=== PATIENT | male | born 1970 | race Two or more races ===

== ENCOUNTER 2018-06-03 01:39 | Emergency (ER) | payer SELFPAY ==
[~2018-06-03] VITALS: Ht 175.3 cm; Wt 78.0 kg
[2018-06-03] MEDS ORDERED: HYDROCODONE/APAP 10MG-325MG TAB PO ONE (02:00)
--- NOTE | 2018-06-03 03:16 | Diagnostic Imaging Report ---
WRIST LEFT 2 VIEWS, FOREARM LEFT 2 VIEW, ANKLE 3 + VIEWS RIGHT, FOOT RIGHT COMPLETE Comparison: None Clinical history: ^s/p injury 3 days ago ^Y Findings: Left wrist and forearm: Comminuted intraarticular distal radial fracture with apex dorsal inhalation and displacement. Positive ulnar variance with indeterminate adjacent mineralization projecting posterior on lateral view. Ossific fragment posterior to the carpals, likely a triquetral fracture. Associated soft tissue swelling. Left ankle and foot: Oblique nondisplaced distal fibular fracture; ankle mortise is intact. Probable fracture of the medial anterior talus. Comminuted fractures of the navicular, cuboid, middle and lateral cuneiforms with complete disruption of the tarsal and primarily the third through fifth TMT alignment. Intra-articular displaced fracture of the 3rd metatarsal base and likely fifth metatarsal base. Associated soft tissues Impression: Left wrist, forearm: 1. Comminuted displaced intra-articular distal radial fracture. 2. Triquetral fracture. 3. Favor artifact of the fifth proximal phalanx rather than fracture; correlate with point tenderness and dedicated hand views as indicated. Left ankle, foot: 1. Oblique nondisplaced distal fibular fracture. 2. Extensive fractures of the mid foot with dislocation and abnormal TMT alignment. Signed by: Dr Rhiannon Carbajal MD on 06/03/2018 3:13 AM
[2018-06-03] MEDS ORDERED: HYDROMORPHONE 1MG/1ML INJ IM STA (03:24)
--- NOTE | 2018-06-03 03:28 | Diagnostic Imaging Report ---
LUMBAR 3 VIEW, THORACIC SPINE 2VW Comparison: None Clinical history: Injury 3 days ago, pain Findings: Thoracic and lumbar spine: Suboptimal visualization of the cervicothoracic junction on lateral view. Acute appearing compression fracture deformities at T11 and T12 with 70% and 40% height loss, respectively. Slight kyphosis at T11. Mild height loss at T7 and T8, nonspecific. Impression: Acute compression fractures at T11 and T12, resulting in slight focal kyphosis. Discussed with Dr. Segura at 320 AM on 06/03/18. Signed by: Dr Rhiannon Carbajal MD on 06/03/2018 3:24 AM
[2018-06-03] MEDS ORDERED: ONDANSETRON HCL 4 MG ORAL DISINTEGRATING TAB PO ONE (03:30)
[2018-06-03] MEDS ORDERED: HYDROMORPHONE 2MG/ML 2 MG/ML ML ONE ×2 (03:42→06:30)
--- NOTE | 2018-06-03 04:54 | Diagnostic Imaging Report ---
EXAMINATION: Head and cervical spine CT without contrast. HISTORY: Status post fall from 4 mm with thoracic compression fractures, head trauma, neck and back pain, COMPARISON: None. TECHNIQUE: Multidetector axial images were obtained without contrast from the foramen magnum to the vertex and through the cervical spine. The images were reconstructed using brain and bone algorithms. Thin section brain images were reformatted into coronal and sagittal planes. Dose modulation, iterative reconstruction, and/or weight based adjustment of the mA/kV was utilized to reduce the radiation dose to as low as reasonably achievable. HEAD CT FINDINGS: Skull: No lytic or blastic lesions. No fractures. Parenchyma: Normal. No mass, hemorrhage or CT evidence of acute vascular insult. Brain volume: Normal for age. Ventricles: No hydrocephalus or displacement. Arteries: No density suggestive of thrombus. Dural sinuses: No abnormal density. Extra-axial spaces: No abnormal density. Silhouetting of the right choroidal fissure small benign arachnoid cyst. Foramen magnum: No mass, Chiari malformation, or basilar invagination. Sella: No obvious mass. Paranasal/mastoid sinuses: Imaged portions unremarkable. CERVICAL SPINE CT FINDINGS: Alignment:Normal alignment and lordosis. Soft tissues: Normal. Vertebrae: Normal height and density. No acute fracture, infection or neoplasm. Degenerative changes: None IMPRESSION: Head CT: No intracranial abnormalities, particularly no posttraumatic hemorrhage. Cervical spine CT: No acute fractures or dislocations. Note: Acute post traumatic spinal cord, vascular or ligamentous injury cannot adequately be assessed with CT. Signed by: Dr. Denisse Burroughs M.D. on 06/03/2018 4:51 AM
--- NOTE | 2018-06-03 05:23 | Diagnostic Imaging Report ---
EXAMINATION: CT of the thoracic and lumbar spine HISTORY: Status post fall from 4 mm with thoracic compression fractures, seen on thoracic spine plain films, back pain COMPARISON: Thoracic and lumbar spine x-rays performed on 06/03/2018. TECHNIQUE: Multidetector helical axial images were obtained without contrast from T1 to S1. The images were reconstructed using bone and soft tissue algorithms and were viewed in axial, sagittal, and coronal planes. Dose modulation, iterative reconstruction, and/or weight based adjustment of the mA/kV was utilized to reduce the radiation dose to as low as reasonably achievable. FINDINGS: Alignment: Normal thoracic aorta. The lumbar lordosis. Mild thoracolumbar kyphosis. Vertebral bodies: -Acute comminuted and displaced axial compression fracture of the T11 and T12 vertebral bodies, with decreased vertebral body height by approximately 70% anteriorly at T11 and 40% at T12. There is minimal posterior retropulsion of the superior endplate of T12 by approximately 4 mm and associated mild canal stenosis, there is involvement of the T12 vertebral body posterior cortex, consistent with burst fracture. Minimal associated vacuum phenomenon within the T10-T11 and T11-T12 intervertebral disc. Mild widening of the T11 and T12 interspinous process distance without definite posterior ligamentous injury within the limitations of the technique. -Well-corticated bone fragments are seen about the tip of the spinous process of T4 and T12 which may represent sequela from remote trauma, otherwise no evidence of acute fractures of the posterior elements. -Minimal age indeterminate, likely chronic central compression deformity of T7 and T4 (decreased vertebral body height centrally by approximately 20 an 10% respectively) without posterior for retropulsion or canal stenosis. There is also minimal depression of the inferior endplate of T9. Paraspinal muscles: Radiopaque calcified stones without hydronephrosis and the right kidney. Degenerative changes: L1-L2: Normal. L2-L3: Normal. L3-L4: Minimal disc bulge without canal or foraminal stenosis. L4-L5: Symmetric the. Mild bilateral foraminal narrowing.. L5-S1: Minimal. The. Pelvic bones: -Fusion of the left sacroiliac joint. -Nonaggressive-appearing expansile lucent lesion within the left iliac bone, without cortical disruption, periosteal reaction or soft tissue mass, which may represent an atypical hemangioma. IMPRESSION: 1. Acute comminuted and displaced axial compression fracture of the T11 and burst fracture of T12 vertebral bodies with mild posterior retropulsion of T12 and mild canal stenoses. Mild associated thoracolumbar kyphotic malalignment. No definite evidence of posterior ligamentous injury. Unchanged fractures compared to thoracic spine x-ray performed earlier on the same day. 2. Age indeterminate, likely chronic minimal compression deformity of the T4, T7 and T9 vertebral bodies without posterior retropulsion or canal stenosis. 3. Nonaggressive appearing expansile lucent lesion in the left iliac bone as detailed above. Comparison to prior studies if available is advised. 4. Incidentally noted small radiopaque stones in the right kidney without hydronephrosis. Note is made that acute posttraumatic spinal cord, vascular or ligamentous injury cannot adequately be assessed with CT, if there is is clinical concern, a thoracolumbar spine MRIs recommended for further evaluation. The acute compression fractures were already discussed with the ER physician Dr. Segura on 06/03/2018 at 3:24 AM. Signed by: Dr. Denisse Burroughs M.D. on 06/03/2018 5:19 AM
[2018-06-03] MEDS ORDERED: HYDROMORPHONE 1MG/1ML INJ IV STA (06:25)
[2018-06-03] MEDS ORDERED: HYDROMORPHONE 2MG/ML 2 MG/ML ML IV ONE (06:30)
[2018-06-03] MEDS ORDERED: ONDANSETRON HCL INJ 2 MG/ML VIAL ONE (06:30)
[2018-06-03] MEDS ORDERED: ONDANSETRON HCL INJ 2 MG/ML VIAL IV STA (06:39)
== END 2018-06-03 06:55 | disposition other institution (70) ==
LOC: ER 01:39
DX: M54.6 Pain in thoracic spine (principal); S22.080A Wedge compression fracture of T11-T12 vertebra, initial encounter for closed fracture; S22.082A Unstable burst fracture of T11-T12 vertebra, initial encounter for closed fracture; S82.61XA Displaced fracture of lateral malleolus of right fibula, initial encounter for closed fracture; S92.321A Displaced fracture of second metatarsal bone, right foot, initial encounter for closed fracture; S92.331A Displaced fracture of third metatarsal bone, right foot, initial encounter for closed fracture; S92.341A Displaced fracture of fourth metatarsal bone, right foot, initial encounter for closed fracture; S92.351A Displaced fracture of fifth metatarsal bone, right foot, initial encounter for closed fracture; S52.572A Other intraarticular fracture of lower end of left radius, initial encounter for closed fracture; W11.XXXA Fall on and from ladder, initial encounter; Y99.0 Civilian activity done for income or pay; F17.210 Nicotine dependence, cigarettes, uncomplicated
CPT/HCPCS: 29125; 29515; 70450; 72070; 72100; 72125; 72128; 72131; 73090; 73100; 73610; 73630; 96372; 96374; 96375; 99284; J1170; J2405; Q0162